=== PATIENT | female | born 1965 | race Caucasian/White ===

== ENCOUNTER 2024-10-03 09:01 | Outpatient (OUT) | payer BC, SELFPAY ==
[2024-10-03 10:02] LABS: Alanine Aminotransferase 14 U/L (14-59); Aspartate Amino Transferase 12 U/L (15-37); Chol HDL Ratio 2.4; Cholesterol 144 mg/dL (<=200); HDL Cholesterol 59 mg/dL (40-60); LDL Cholesterol Calculated 64.4 mg/dL; Triglycerides 103 mg/dL (<=150); VLDL CHOLESTEROL 20.6 mg/dL
== END 2024-10-03 09:02 | disposition home or self-care (01) ==
LOC: LAB 09:05
PROVIDERS: PCP Family Medicine; Visit Provider Internal Medicine Cardiovascular Disease
DX: E78.2 Mixed hyperlipidemia (principal)
CPT/HCPCS: 36415; 80061; 84450; 84460